=== PATIENT | male | born 1975 | race Caucasian/White ===

== ENCOUNTER → 2016-12-18 | Outpatient (CLI) | payer BC ==
[~2016-12-18] MED LIST: RANI150T5 PO
[2016-12-18 06:26] LABS: ADD SCAN DIFF NO
[2016-12-18 06:42] LABS: BASOPHIL # 0.1 10^3/ul (0.0-0.1); BASOPHILS % 0.7 % (0.0-2.0); EOSINOPHILS # 0.2 10^3/ul (0.0-0.5); EOSINOPHILS % 2.5 % (0.0-7.0); HEMATOCRIT 41.5 % (42.0-52.0); HEMOGLOBIN 14.3 g/dl (14.0-18.0); LYMPHOCYTES # 2.2 10^3/ul (0.8-2.9); LYMPHOCYTES % 32.1 % (15.0-51.0); MEAN CORPUSCULAR HEMOGLOBIN 29.9 pg (29.0-33.0); MEAN CORPUSCULAR HGB CONC 34.5 g/dl (32.0-37.0); MEAN CORPUSCULAR VOLUME 86.6 fl (82.0-101.0); MEAN PLATELET VOLUME 10.4 fl (7.4-10.4); MONOCYTE # 0.6 10^3/ul (0.3-0.9); NEUTROPHIL # 3.7 10^3/ul (1.6-7.5); PLATELET COUNT 181 10^3/UL (140-415); RED BLOOD COUNT 4.79 10^6/ul (4.70-6.10); RED CELL DISTRIBUTION WIDTH 13.1 % (11.5-14.5); WHITE BLOOD COUNT 6.8 10^3/ul (4.8-10.8)
[2016-12-18 06:54] LABS: ADD UMIC NO; UR ASCORBIC ACID NEGATIVE (NEGATIVE); UR BILIRUBIN (Dip) NEGATIVE (NEGATIVE); UR BLOOD (Dip) NEGATIVE (NEGATIVE); UR CLARITY CLEAR (CLEAR); UR COLOR YELLOW (YELLOW); UR GLUCOSE (Dip) NEGATIVE (NEGATIVE); UR KETONES (Dip) NEGATIVE (NEGATIVE); UR LEUKOCYTE ESTERASE (Dip) NEGATIVE Leu/ul (NEGATIVE); UR NITRITE (Dip) NEGATIVE (NEGATIVE); UR SPECIFIC GRAVITY (Dip) 1.024 (1.003-1.030); UR TOTAL PROTEIN (Dip) NEGATIVE (NEGATIVE); UR UROBILINOGEN (Dip) NEGATIVE (NEGATIVE)
[2016-12-18 07:15] LABS: ALBUMIN 4.5 g/dl (3.3-4.9); ALBUMIN/GLOBULIN RATIO 1.4; BILIRUBIN,INDIRECT 0.3 mg/dl (0-1.1); BILIRUBIN,TOTAL 0.3 mg/dl (0.2-1.3); CALCIUM 9.5 mg/dl (8.4-10.2); CREATININE 0.69 mg/dl (0.61-1.24); MAGNESIUM 1.9 mg/dl (1.7-2.5); TOTAL PROTEIN 7.7 g/dl (6.1-8.1)
--- NOTE | 2016-12-18 16:22 | RADRPT ---
PROCEDURE: XR Chest. CLINICAL INDICATION: Cough. TECHNIQUE: Two views. Frontal and lateral. COMPARISON: No prior study is available for comparison. FINDINGS: The lungs are clear. The heart size is normal. There is no pleural effusion. There is no pneumothorax. IMPRESSION: 1. Normal chest radiograph. RPTAT: QQ .Zacarias Banegas MD, MD Date Time Electronically viewed and signed by .Zacarias Banegas MD, MD on 12/18/2016 16:22 .R/
--- NOTE | 2016-12-18 19:09 | RADRPT ---
Vent Rate: 86 bpm RR Interval: 0 msec MI Interval: 156 msec QRS Duration: 110 msec QT Interval: 376 msec QTC Interval: 449 msec P-R-T [place]: 50 - 67 - 60 degrees Normal sinus rhythm Normal ECG Electronically Signed By: Manuel Thao [id number]
== END | disposition home or self-care (01) ==
LOC: LAB 06:08
PROVIDERS: ATTEND Internal Medicine
DX: R00.2 Palpitations (principal); R05 Cough
CPT/HCPCS: 71020; 80053; 80061; 81003; 82043; 82306; 83735; 85025; 93005

== ENCOUNTER → 2018-08-10 | Outpatient (CLI) | payer BC | END | disposition home or self-care (01) | LOC: LAB 05:48 → EEVIPCON 05:48 | PROVIDERS: ATTEND Internal Medicine | DX: R94.5 Abnormal results of liver function studies (principal); K76.0 Fatty (change of) liver, not elsewhere classified | CPT/HCPCS: 80061; 83540; 86706; 86803; 87340 ==

== ENCOUNTER → 2018-08-31 | Outpatient (CLI) | payer BC | END | disposition home or self-care (01) | LOC: LAB 13:29 | PROVIDERS: ATTEND Internal Medicine | DX: R94.5 Abnormal results of liver function studies (principal) | CPT/HCPCS: 80076 ==

== ENCOUNTER → 2018-11-03 | Outpatient (CLI) | payer BC | END | disposition home or self-care (01) | LOC: LAB 16:16 | PROVIDERS: ATTEND Internal Medicine | DX: R94.5 Abnormal results of liver function studies (principal) | CPT/HCPCS: 81001; 87086 ==